=== PATIENT | male | born 1975 | race Caucasian/White ===

== ENCOUNTER 2024-04-20 15:42 | Inpatient (IN) | payer MEDICAID ==
[~2024-04-20] VITALS: Ht 147.3 cm; Wt 60.8 kg
[2024-04-20] MEDS: SODIUM CHLORIDE 0.9% 1,000 ML IV ONE (16:41)
[2024-04-20 16:50] LABS: BASOPHILS % 0.7 % (0.0-2.0); DIFFERENTIAL COMMENT 0; EOSINOPHILS % 0.4 % (0.0-5.0); HEMATOCRIT. 44.8 % (42.0-52.0); HEMOGLOBIN. 13.8 g/dL (14.0-18.0); LYMPHOCYTES % 21.9 % (20.0-50.0); MEAN CORPUSCULAR HEMOGLOBIN 28.1 pg (28.0-32.0); MEAN CORPUSCULAR HGB CONC 30.7 g/dL (31.0-37.0); MEAN CORPUSCULAR VOLUME 91.5 fL (80.0-94.0); MEAN PLATELET VOLUME 8.2 fl (7.4-10.4); MONOCYTES % 2.2 % (2.0-8.0); NEUTROPHILS % 74.8 % (40.0-76.0); PLATELET 262 x1000/uL (130-400); RED CELL DISTRIBUTION WIDTH 19.3 % (11.6-14.6); WHITE BLOOD COUNT 4.7 x1000/uL (4.5-11.0)
[2024-04-20 16:57] LABS: CARBON DIOXIDE 17 mEq/L (21-32); CHLORIDE 94 mEq/L (98-107); SODIUM 131 mEq/L (136-145)
[2024-04-20 16:58] LABS: CALCIUM 8.7 mg/dL (8.7-10.4)
[2024-04-20 17:02] LABS: PROTHROMBIN TIME 10.9 sec (9.6-11.0)
[2024-04-20 17:03] LABS: GLUCOSE 150 mg/dL (70-105)
[2024-04-20 17:20] LABS: ETHANOL BLOOD < 10 mg/dL (<10)
[2024-04-20 17:31] LABS: LACTIC ACID 4.5 mmol/L (0.4-2.0)
[2024-04-20 17:33] LABS: UREA NITROGEN BLOOD 107 mg/dL (9-23)
[2024-04-20 17:34] LABS: CREATININE 11.4 mg/dL (0.6-1.3)
[2024-04-20 17:35] VITALS: PULSE 68; RESP 20
[2024-04-20 17:35] LABS: TROPONIN I HIGH SENSITIVITY 110 ng/L (3.0-53)
[2024-04-20] MEDS: ALBUTEROL (0.083%) 2.5MG/3ML NEB HHN NR (17:35)
[2024-04-20] MEDS: DEXTROSE 50% WATER 50ML SYRINGE IV NR (17:51)
[2024-04-20] MEDS: SODIUM ZIRCONIUM CYCLOSILICATE 10GM/PACKET PO NR (17:51)
[2024-04-20] MEDS: SODIUM BICARBONATE 8.4% 50MEQ/50ML SYR IV NR (17:51)
[2024-04-20] MEDS: CEFTRIAXONE 1GM/50ML 50 ML IV NR (17:51)
[2024-04-20] MEDS: INSULIN REGULAR (HUMULIN R) 1000UNITS/10ML VIAL IV NR (18:07)
[2024-04-20 19:25] LABS: POTASSIUM 4.8 mEq/L (3.5-5.1)
[2024-04-20 19:26] LABS: CALCIUM 7.6 mg/dL (8.7-10.4)
[2024-04-20] MEDS ORDERED: ONDANSETRON HCL 4MG/2ML INJ IV PRN (19:30)
[2024-04-20] MEDS ORDERED: DEXTROSE 50% WATER 50ML SYRINGE IV PRN (19:30)
[2024-04-20] MEDS ORDERED: DOCUSATE SODIUM 100MG CAPSULE PO PRN (19:30)
[2024-04-20] MEDS ORDERED: IPRATROPIUM/ALBUTEROL 0.5-3(2.5)MG/3ML NEB HHN PRN (19:30)
[2024-04-20] MEDS ORDERED: ACETAMINOPHEN 325MG TABLET PO PRN ×2 (19:30)
[2024-04-20 19:50] LABS: CREATININE 11.2 mg/dL (0.6-1.3)
[2024-04-20] MEDS: BLOOD SUGAR DIAGNOSTIC STRIP TEST SCH (21:00)
[2024-04-20] MEDS: INSULIN LISPRO 100 UNITS/ML SUBCUT SCH (22:38)
[2024-04-21] VITALS (12 sets, daily range): BP systolic 142–173; BP diastolic 73–95; PULSE 78–98; RESP 15–19; TEMP 25.5576–37; O2SAT 100
[2024-04-21 02:27] LABS: AMMONIA < 17 uMol/L (<32)
[2024-04-21 07:11] LABS: CHLORIDE 96 mEq/L (98-107); SODIUM 135 mEq/L (136-145)
[2024-04-21 07:12] LABS: CALCIUM 7.8 mg/dL (8.7-10.4); CARBON DIOXIDE 20 mEq/L (21-32)
[2024-04-21 07:17] LABS: GLUCOSE 141 mg/dL (70-105)
[2024-04-21 07:19] LABS: ALANINE AMINOTRANSFERASE 32 IU/L (10-49); ALBUMIN 3.7 g/dL (3.2-4.8); ASPARTATE AMINOTRANSFERASE 37 IU/L (<34)
[2024-04-21 07:20] LABS: BILIRUBIN TOTAL 0.2 mg/dL (0.1-1.0); PROTEIN TOTAL 6.2 g/dL (6.0-8.3)
[2024-04-21 07:30] LABS: BASOPHILS % 0.2 % (0.0-2.0); EOSINOPHILS % 0.1 % (0.0-5.0); HEMATOCRIT. 36.6 % (42.0-52.0); HEMOGLOBIN. 11.9 g/dL (14.0-18.0); LYMPHOCYTES % 7.7 % (20.0-50.0); MEAN CORPUSCULAR HEMOGLOBIN 28.5 pg (28.0-32.0); MEAN CORPUSCULAR HGB CONC 32.4 g/dL (31.0-37.0); MEAN CORPUSCULAR VOLUME 88.1 fL (80.0-94.0); MEAN PLATELET VOLUME 8.3 fl (7.4-10.4); PLATELET 241 x1000/uL (130-400); RED BLOOD CELL COUNT 4.16 mill/uL (4.7-6.1); RED CELL DISTRIBUTION WIDTH 19.1 % (11.6-14.6); WHITE BLOOD COUNT 8.1 x1000/uL (4.5-11.0)
[2024-04-21 08:48] LABS: CREATININE 12.3 mg/dL (0.6-1.3); UREA NITROGEN BLOOD 114 mg/dL (9-23)
[2024-04-21 08:50] LABS: PHOSPHORUS 9.6 mg/dL (2.5-4.9); POTASSIUM 6.4 mEq/L (3.5-5.1)
[2024-04-21 13:06] LABS: HEPATITIS B SURFACE ANTIGEN NEGATIVE (Negative)
[2024-04-21 13:27] LABS: HEPATITIS A AB IGM NEGATIVE (Negative); HEPATITIS B CORE AB IGM NEGATIVE (Negative)
[2024-04-21 13:28] LABS: HEPATITIS C AB NON REACTIVE (Neg) (Negative)
[2024-04-21] MEDS: CLONIDINE 0.1MG TABLET PO PRN (22:53)
[2024-04-22] VITALS: BP 161/95; PULSE 87; RESP 19; TEMP 36.2; O2SAT 98
[2024-04-22 08:00] VITALS: BP 163/95; PULSE 117; RESP 18; TEMP 36.3; O2SAT 96
[2024-04-22 11:43] LABS: BASOPHILS % 0.8 % (0.0-2.0); EOSINOPHILS % 1.7 % (0.0-5.0); HEMATOCRIT. 35.5 % (42.0-52.0); HEMOGLOBIN. 11.2 g/dL (14.0-18.0); LYMPHOCYTES % 14.8 % (20.0-50.0); MEAN CORPUSCULAR HEMOGLOBIN 28.1 pg (28.0-32.0); MEAN CORPUSCULAR HGB CONC 31.6 g/dL (31.0-37.0); MEAN CORPUSCULAR VOLUME 88.9 fL (80.0-94.0); MEAN PLATELET VOLUME 8.2 fl (7.4-10.4); MONOCYTES % 7.9 % (2.0-8.0); NEUTROPHILS % 74.8 % (40.0-76.0); PLATELET 223 x1000/uL (130-400); RED BLOOD CELL COUNT 3.99 mill/uL (4.7-6.1); RED CELL DISTRIBUTION WIDTH 19.3 % (11.6-14.6); WHITE BLOOD COUNT 6.2 x1000/uL (4.5-11.0)
[2024-04-22 11:47] LABS: POTASSIUM 4.9 mEq/L (3.5-5.1)
[2024-04-22 12:00] VITALS: BP 165/94; PULSE 115; RESP 18; TEMP 36.5; O2SAT 96
[2024-04-22 12:10] LABS: CREATININE 10.7 mg/dL (0.6-1.3)
[2024-04-22] MEDS: CALCIUM ACETATE 667MG CAPSULE PO SCH (14:56)
[2024-04-22 20:00] VITALS: BP 181/106; PULSE 94; RESP 18; TEMP 36.7; O2SAT 97
[2024-04-22] MEDS: AMLODIPINE 5MG TABLET PO SCH (22:04)
[2024-04-23] VITALS (11 sets, daily range): BP systolic 117–152; BP diastolic 72–111; PULSE 64–82; RESP 16–19; TEMP 35.9–36.50292; O2SAT 97–100
[2024-04-23 05:30] LABS: POTASSIUM 5.9 mEq/L (3.5-5.1)
[2024-04-23 05:31] LABS: CALCIUM 7.7 mg/dL (8.7-10.4)
[2024-04-23 08:03] LABS: BASOPHILS % 0.8 % (0.0-2.0); EOSINOPHILS % 3.1 % (0.0-5.0); HEMATOCRIT. 34.6 % (42.0-52.0); LYMPHOCYTES % 21.5 % (20.0-50.0); MEAN CORPUSCULAR HEMOGLOBIN 28.5 pg (28.0-32.0); MEAN CORPUSCULAR HGB CONC 31.9 g/dL (31.0-37.0); MEAN CORPUSCULAR VOLUME 89.3 fL (80.0-94.0); MEAN PLATELET VOLUME 8.1 fl (7.4-10.4); MONOCYTES % 8.6 % (2.0-8.0); PLATELET 188 x1000/uL (130-400); RED BLOOD CELL COUNT 3.88 mill/uL (4.7-6.1); RED CELL DISTRIBUTION WIDTH 18.9 % (11.6-14.6); WHITE BLOOD COUNT 5.7 x1000/uL (4.5-11.0)
[2024-04-23] MEDS: SODIUM POLYSTYRENE SULFONATE 15 G/60 ML BOT PO NR (13:35)
[2024-04-24 07:07] LABS: BASOPHILS % 0.8 % (0.0-2.0); EOSINOPHILS % 3.8 % (0.0-5.0); HEMATOCRIT. 34.9 % (42.0-52.0); HEMOGLOBIN. 11.4 g/dL (14.0-18.0); LYMPHOCYTES % 25.8 % (20.0-50.0); MEAN CORPUSCULAR HEMOGLOBIN 28.6 pg (28.0-32.0); MEAN CORPUSCULAR HGB CONC 32.5 g/dL (31.0-37.0); MEAN PLATELET VOLUME 8.2 fl (7.4-10.4); MONOCYTES % 9.3 % (2.0-8.0); NEUTROPHILS % 60.3 % (40.0-76.0); PLATELET 199 x1000/uL (130-400); RED BLOOD CELL COUNT 3.97 mill/uL (4.7-6.1); RED CELL DISTRIBUTION WIDTH 19.3 % (11.6-14.6); WHITE BLOOD COUNT 5.8 x1000/uL (4.5-11.0)
[2024-04-24 08:14] LABS: CARBON DIOXIDE 23 mEq/L (21-32); CHLORIDE 99 mEq/L (98-107); POTASSIUM 4.2 mEq/L (3.5-5.1); SODIUM 137 mEq/L (136-145)
[2024-04-24 08:15] LABS: CALCIUM 8.4 mg/dL (8.7-10.4)
[2024-04-24 08:20] LABS: GLUCOSE 63 mg/dL (70-105); UREA NITROGEN BLOOD 68 mg/dL (9-23)
[2024-04-24 08:22] LABS: PHOSPHORUS 7.6 mg/dL (2.5-4.9)
[2024-04-24 08:23] VITALS: BP 158/86; PULSE 80; RESP 20; TEMP 36.1; O2SAT 99
[2024-04-24 09:11] LABS: CREATININE 9.7 mg/dL (0.6-1.3)
[2024-04-24 12:43] VITALS: BP 149/85; PULSE 81; RESP 18; TEMP 37.2; O2SAT 98
[2024-04-24 16:46] VITALS: BP 110/66; PULSE 75; RESP 20; TEMP 36.5; O2SAT 98
[2024-04-24 20:00] VITALS: BP 144/88; PULSE 88; RESP 20; TEMP 36.4; O2SAT 97
[2024-04-24] MEDS ORDERED: CALC667C PO (21:07)
[2024-04-24] MEDS ORDERED: AMLO5TAB88 PO (21:07)
[2024-04-25] VITALS (15 sets, daily range): BP systolic 133–154; BP diastolic 75–95; PULSE 77–88; RESP 16–20; TEMP 36.3918–36.5; O2SAT 97–100
== END 2024-04-25 20:15 | disposition home or self-care (01) | DRG 422 ==
LOC: ER 15:42 → 6WST 18:45 → EDBEDREQ 19:08 → EDBEDREQTM 19:08
PROVIDERS: ADMIT Family Medicine Adult Medicine; ATTEND Family Medicine Adult Medicine
PROC: 5A1D70Z Performance of Urinary Filtration, Intermittent, Less than 6 Hours Per Day (ICD-10-PCS; principal; 2024-04-21)
PROC: 5A1D70Z Performance of Urinary Filtration, Intermittent, Less than 6 Hours Per Day (ICD-10-PCS; 2024-04-23)
PROC: 5A1D70Z Performance of Urinary Filtration, Intermittent, Less than 6 Hours Per Day (ICD-10-PCS; 2024-04-25)
DX: E87.5 Hyperkalemia (principal); E86.0 Dehydration; G93.41 Metabolic encephalopathy; E87.20 Acidosis, unspecified; I12.0 Hypertensive chronic kidney disease with stage 5 chronic kidney disease or end stage renal disease; E11.22 Type 2 diabetes mellitus with diabetic chronic kidney disease; D64.9 Anemia, unspecified; E87.70 Fluid overload, unspecified; I48.91 Unspecified atrial fibrillation; N18.6 End stage renal disease; Z91.158 Patient's noncompliance with renal dialysis for other reason; Z99.2 Dependence on renal dialysis
CPT/HCPCS: 36415; 70551; 71045; 80048; 80053; 80320; 82140; 82962; 83036; 83605; 83735; 83880; 84100; 84145; 84443; 84484; 85025; 86705; 86709; 86850; 86900; 87340; 90935; 93005; 94640; 99285; J0696; J1815; J3490; J7030; G0480